=== PATIENT | male | born 1965 | race African-American/Black ===

== ENCOUNTER 2019-08-08 05:20 | Inpatient (IN) ==
[2019-08-08] MEDS ORDERED: ceFAZolin 1,000 MG in SYRINGE 1 EACH IV ONE (06:00)
[2019-08-08] MEDS ORDERED: DIAZEPAM 5 MG TABLET PO ONE (06:00)
[2019-08-08] MEDS ORDERED: ACETAMINOPHEN 500 MG TABLET PO ONE (06:00)
[2019-08-08] MEDS ORDERED: VANCOMYCIN INJ 1,000 MG in SODIUM CHLORIDE 0.9% 250 ML IV ONE (06:00)
[2019-08-08] MEDS ORDERED: FAMOTIDINE 20 MG TABLET PO ONE (06:00)
[2019-08-08] MEDS ORDERED: GABAPENTIN 400 MG CAPSULE PO ONE (06:00)
[2019-08-08] MEDS ORDERED: VANCOMYCIN 1,000 MG VIAL ONE (07:14)
[2019-08-08] MEDS ORDERED: ACETAMINOPHEN 500 MG TABLET ONE (07:15)
[2019-08-08] MEDS ORDERED: DIAZEPAM 5 MG TABLET ONE (07:15)
[2019-08-08] MEDS ORDERED: GABAPENTIN 400 MG CAPSULE ONE (07:15)
[2019-08-08] MEDS ORDERED: FAMOTIDINE 20 MG TABLET ONE (07:15)
[2019-08-08] MEDS ORDERED: ceFAZolin 1,000 MG VIAL ONE (07:15)
[2019-08-08] MEDS ORDERED: ROPIVACAINE 0.5% 30 ML VIAL ONE (07:25)
[2019-08-08] MEDS ORDERED: EPINEPHrine 1 MG/ML VIAL ONE (07:25)
[2019-08-08] MEDS ORDERED: DEXAMETHASONE 4 MG/1 ML VIAL ONE (07:25)
[2019-08-08] MEDS: LACTATED RINGERS 1,000 ML IV SCH (07:30)
[2019-08-08] MEDS ORDERED: BUPIVACAINE SPINAL 0.75% 2 ML AMP SPINAL ONE (07:33)
[2019-08-08] MEDS ORDERED: BISACODYL 10 MG SUPP RECTAL PRN (10:54)
[2019-08-08] MEDS ORDERED: LACTULOSE 20 GM/30 ML UDCUP PO PRN (10:54)
[2019-08-08] MEDS ORDERED: PROMETHAZINE 25 MG/1 ML VIAL IM PRN (10:54)
[2019-08-08] MEDS ORDERED: MAGNESIUM HYDROXIDE SUSP 30 ML UDCUP PO PRN (10:54)
[2019-08-08] MEDS ORDERED: ONDANSETRON 4 MG/2 ML VIAL IV PRN (10:54)
[2019-08-08] MEDS ORDERED: diphenhydrAMINE CAP 25 MG CAPSULE PO PRN (10:54)
[2019-08-08] MEDS ORDERED: PROPOFOL 200 MG/20 ML VIAL IV ONE (11:17)
[2019-08-08] MEDS ORDERED: MIDAZOLAM 2 MG/2 ML VIAL ONE (11:17)
[2019-08-08] MEDS ORDERED: fentaNYL 100 MCG/2 ML VIAL ONE (11:17)
[2019-08-08] MEDS ORDERED: TRANEXAMIC ACID 1,000 MG/10 ML VIAL ONE (11:18)
[2019-08-08] MEDS ORDERED: SODIUM CHLORIDE 0.9% 200 ML IV ONE (11:18)
[2019-08-08] MEDS ORDERED: PHENYLEPHRINE 1 MG/10 ML SYRINGE IV ONE (11:18)
[2019-08-08 11:47] LABS: Apearance,Urine CLEAR (Clear); Bacteria,Urine Occasional /HPF (Few); Bilirubin,Urine Negative (Negative); Blood, Urine Negative (Negative); Glucose,Urine (UA) Negative (Negative); Ketones,Urine Negative (Negative); Mucus,Urine Occasional /LPF (Occasional); Nitrite,Urine Negative (Negative); Protein,Urine Negative; RBC,Urine 3 /HPF (0-4); Squamous Epithelial Cell,Urine Occasional /HPF (0-10); Urine Color Yellow (Yellow); Urine Urobilinogen < 2.0 EU/DL (0.2-1.0); WBC,Urine 1 /HPF (0-6)
[2019-08-08] MEDS ORDERED: MORPHINE 4 MG/1 ML VIAL IV PRN (12:27)
[2019-08-08 13:02] LABS: Basophils % 0.5 % (0.0-0.8); Eosinophils # 0.1 10*3/uL (0.0-0.87); Eosinophils % 0.7 % (0.00-10.9); Hematocrit 45.4 VOL% (42.0-52.0); Hemoglobin 14.1 GM/DL (14.0-18.0); Immature Granulocytes % 0.6 %; Immature Granulocytes Absolute 0.05 #; Lymphocytes # 1.3 10*3/uL (1.4-4.0); Lymphocytes % 15.5 % (21.2-54.2); Mean Corpuscular HGB Conc 31.1 GM/DL (32-36); Mean Corpuscular Volume 88.5 FL (87-102); Mean Platelet Volume 11.4 FL (9.6-12.0); Monocytes % 5.4 % (1.7-12.7); Neutrophils % 77.3 % (38.7-73.9); Platelet Count 225 T/CUMM (130-400); Red Blood Count 5.13 MC/CUMM (3.8-5.5); Red Cell Distribution Width 13.5 % (9.3-17.3); White Blood Count 8.2 T/CUMM (4-12)
[2019-08-08 13:18] LABS: Calcium 8.9 MG/DL (8.5-10.1); Osmolality,Calculated 281.5 MOS/KG (273-304)
[2019-08-08] MEDS: ceFAZolin 2,000 MG in PREMIX 1 EACH IV SCH ×2 (14:38→23:45)
[2019-08-08] MEDS: MORPHINE 4 MG/1 ML VIAL IV PRN (19:14)
[2019-08-08] MEDS: TEMAZEPAM 7.5 MG CAPSULE PO PRN (20:49)
[2019-08-08] MEDS: DOCUSATE SODIUM 100 MG CAPSULE PO SCH (20:49)
[2019-08-08] MEDS: FONDAPARINUX 2.5 MG/0.5 ML SYRINGE SUBCUT SCH (20:49)
[2019-08-09] MEDS: LACTATED RINGERS 1,000 ML IV SCH ×2 (01:03→10:10)
[2019-08-09] MEDS: MORPHINE 4 MG/1 ML VIAL IV PRN ×2 (01:34→09:17)
[2019-08-09 05:03] LABS: Basophils % 0.3 % (0.0-0.8); Eosinophils # 0.1 10*3/uL (0.0-0.87); Eosinophils % 0.6 % (0.00-10.9); Hematocrit 40.9 VOL% (42.0-52.0); Hemoglobin 12.9 GM/DL (14.0-18.0); Immature Granulocytes % 0.5 %; Immature Granulocytes Absolute 0.05 #; Lymphocytes # 1.5 10*3/uL (1.4-4.0); Lymphocytes % 14.6 % (21.2-54.2); Mean Corpuscular HGB Conc 31.5 GM/DL (32-36); Mean Platelet Volume 11.9 FL (9.6-12.0); Monocytes % 8.4 % (1.7-12.7); Neutrophils % 75.6 % (38.7-73.9); Platelet Count 221 T/CUMM (130-400); Red Cell Distribution Width 13.4 % (9.3-17.3); White Blood Count 10.4 T/CUMM (4-12)
[2019-08-09 05:18] LABS: Calcium 8.7 MG/DL (8.5-10.1); Osmolality,Calculated 275.8 MOS/KG (273-304)
[2019-08-09] MEDS: DOCUSATE SODIUM 100 MG CAPSULE PO SCH ×2 (09:15→20:45)
[2019-08-09] MEDS: FONDAPARINUX 2.5 MG/0.5 ML SYRINGE SUBCUT SCH (20:45)
[2019-08-09] MEDS: TEMAZEPAM 7.5 MG CAPSULE PO PRN (20:45)
[2019-08-10] MEDS: DOCUSATE SODIUM 100 MG CAPSULE PO SCH (08:48)
[2019-08-10 12:05] VITALS: BP 127/82
== END 2019-08-10 16:30 | disposition swing bed (61) | DRG 470 ==
LOC: N.SDSINP 05:20 → N.3E 12:05
PROVIDERS: ADMIT Orthopaedic Surgery; ATTEND Orthopaedic Surgery